=== PATIENT | female | born 2000 | race Caucasian/White ===

== ENCOUNTER 2022-10-06 13:22 | Outpatient (CLI) | payer OTHER, SELFPAY ==
--- OUTSIDE RECORDS SUMMARY | 2022-10-06 13:24 | XMS_ITS ---
:2000 Author Care Team Providers Name Role Phone ALEX OSUNA MD Primary Care Provider Unavailable Allergies Code Code System Name Reaction Severity Status Onset RxNorm Azithromycin ? ? Active ? Cefzil ? ? Active ? Cephalosporins ? ? Active ? Duricef ? ? Active ? Omnicef ? ? Active ? Rocephin ? ? Active ? [id number] RxNorm Suprax ? ? Active ? Notes: kefelex Medications Name Status Start Date Stop Date ? ? Loryna (28) 3 mg-0.02 mg tablet Active ? Not available TAKE 1 TABLET BY MOUTH ONCE DAILY spironolactone 100 mg tablet Completed ? 09/2022 TAKE 1 TABLET BY MOUTH ONCE DAILY FOR 30 DAYS sulfamethoxazole 800 mg-trimethoprim 160 mg tablet Active ? Not available TAKE 1 TABLET BY MOUTH EVERY 12 HOURS FOR 5 DAYS Xdh-Tq-Osipvtor Completed ? 04/01/2022 Sek-Al-Elwbvzqt 0.18 mg/0.215 mg/0.25 mg-25 mcg tablet Completed ? 04/01/2022 Take 1 tablet every day by oral route for 28 days. Ventolin HFA Completed ? 04/01/2022 Problems Name Status Onset Date Source ? Asthma Active 05/22/2020 ? Polycystic Ovary Syndrome Active 03/19/2021 ? Procedures Date Name Performed by ? 04/16/2021 , Transvaginal [facility] (Radiology) [address], [place] [id number] (Work Place) 04/16/2021 , Pelvis [facility] (Radiology) [address] [place] [address] (Work Place) Results Lab Results Date Name Specimen Result Interpretation Description Value Range Status Address ? 08/31/2022 Urinalysis, Urine ? No observation ? ? ? In-Office Dipstick recorded. Order : Internal U se Only DO No t Attach Compendium DO Not Attach Compendium , Do Not Delete/ellyn ge 04/04/2022 Urn Neg MID Suscept Amoxicillin/cl <=2 ? Fi nal [facility] [place] Panel 1 ible avulanate Health (Lab): [address], [place] ? ? MID Resista Ampicillin >=32 ? Final Humb [facility] ([facility]): [address], [place] ? ? MID Suscept Ampicillin/sul 4 ? Final [facility] [place] ible bactam Health (Ks b): [address], [place] ? ? MID Unknown Cefazolin <=4 ? Final [place] l[facility] ([facility]): [address], [place] ? ? MID Suscept Cefepime <=1 ? Final [place] [facility] ([facility]): [address], [place] ? ? MID Suscept Ceftriaxone <=1 ? [facility] [address], [place] ? ? MID Suscept Ciprofloxacin <=0.25 ? [facility] ([facility] [address], [place] ? ? MID Suscept Ertapenem <=0.5 ? Final Hum[place] [facility] (Ks b): [address], [place] ? ? MID Suscept Gentamicin <=1 ? Final [facility] [place] (Ks b): [address], [place] ? ? MID Suscept Imipenem <=0.25 ? Final [place] [facility] (Ks b): [address], [place] ? ? MID Suscept Levofloxacin <=0.12 ? [facility] [address], [place] ? ? MID Interme Nitrofurantoin 64 ? Final [place] diate Health (Ks b): [address], [place] ? ? MID Suscept Piperacillin/t <=4 ? Final [facility] ible azobactam Health (Lab): [address], [place] ? ? MID Suscept Tobramycin <=1 ? Final Humb [facility] ([facility]): [address], [place] ? ? MID Suscept Trimethoprim/s <=20 ? Final [facility] (Ks b): [address], [place] 04/01/2022 HIV Antibody Blood ? HIV 1-2 Ag/Ab, non-bhavin non- re Final [facility] Screen venous 4TH Gen ctive active Health (L ab): [address], [place] 04/01/2022 RPR (Rapid Blood ? Rapid Plasma non-bhavin non-re F inal [facility] Plasma venous [place] ctive active Health ([facility]): [place]), [address], [place] 04/01/2022 chlamydia/N. Urine ? Chlamydia not not Fin [facility] gcrna,tma Trachomatis detecte detect H ealth (Lab): RNA,tma d ed [address], [place] ? ? Urine ? Result Message see () [facility] [address], [place] ? ? Urine ? Neisseria not not Final [facility] Gonorrhoeae detecte detect Heal th (Lab): RNA,tma d ed [address], [place] 04/01/2022 Culture, MID ? Urine Culture ? ? Cor rec [facility] Urine Counts include 234 beds at the [facility] ([facility]): [address], [place] ? ? MID ? Klebsiella isolate ? Correc [facility] [place] [facility] Pneumoniae d Counts include 234 beds at the [facility] (Lab): [address], [place] 04/01/2022 Hepatitis Blood ? Hepatitis a non-bhavin non-re Fin al [facility] profile_I venous Antibody IgM ctive active H ealth (Lab): [address], [place] ? ? Blood ? Hepatitis B non-bhavin non-re Final [facility] [place] venous Core Ab,IgM ctive active Healt h (Lab): [address], [place] ? ? Blood ? Hepatitis B non-bhavin non-re Final [facility] [place] venous Surface Antigen ctive active H ealth (Lab): [address], [place] ? ? Blood ? Hepatitis C non-bhavin non-re Final [place] venous Antibody ctive active Health ( Lab): [address], [place] ? ? Blood ? hep.C Ab 0.04 <1.00 Final [place] venous Signal to Health (Lab): Cut-off [address], [place] 04/01/2022 Hepatitis ? No observation ? ? ? (A+B+C) recorded. Panel, Serum 04/01/2022 Culture, Urine ? No observation ? ? ? [place] Urine recorded. Health (Lab): [address], [place] 04/01/2022 Urinalysis, Urine ? No observation ? ? ? In-Office Dipstick recorded. Order : Internal U se Only DO No t Attach Compendium DO Not Attach Compendium , Do Not Delete/ellyn ge 04/25/2021 CBC with Normal Abs Baso(auto) 0.0 0.0-0. Fi nal [place] Diff K/cmm 2 Health (La b): K/cmm [address], [place] ? ? Normal Abs Eos(auto) 0.1 0-0.3 Final [place] K/cmm K/cmm Health (La b): [address], [place] ? ? Normal Abs Gran(auto) 3.8 1.5-7. Final [place] K/cmm 8 Health (La b): K/cmm [address], [place] ? ? Normal Abs 1.8 0.85-3 Final [place] [place] Lymphs(auto) K/cmm .9 Heal th (Lab): K/cmm [address], [place] ? ? Normal Abs [place](auto) 0.4 0.2-0. Final [place] K/cmm 95 Health (La b): K/cmm [address], [place] ? ? Normal Basophil% 0.5 % 0-2.0 Final [place] (Auto Diff) % Healt h (Lab): [address], [place] ? ? Normal Eosinophil%(Au 1.2 % 0-4 % Final [place] to Diff) Health ( Lab): [address], [place] ? ? Normal Granulocyte%(A 62.1 % 46-75 Final [place] uto) % Health ([place] b): [address], [place] ? ? Normal Hematocrit 38.7 % 35-45 Final [place] % Health ([place] b): [address], [place] ? ? Normal Hemoglobin 13.2 11.7-1 Final [place] g/dL 5.5 Health (La b): g/dL [address], [place] ? ? Normal Lymph%(Auto) 29.2 % 20-45 Final [place] % Health ([place] b): [address], [place] ? ? Normal Mean 28.8 pg 27-33 Final [place] Corpuscular pg Healt h (Lab): Hemoglobin [address], [place] ? ? Normal Mean 34.0 32-36 Final [place] Corpuscular HGB g/dL g/dL H ealth (Lab): Conc [address], [place] ? ? Normal Mean 84.6 fL 80-100 Final [place] Corpuscular fL Healt h (Lab): Volume [address], [place] ? ? Normal [place]%(Auto) 7.0 % 2-10 % Final [place] Health ([place] b): [address], [place] ? ? Normal Mean Platelet 7.9 fL 7.5-12 Final [place] Volume .5 fL Health (La b): [address], [place] ? ? Normal Platelet Count 336 140-40 Final [place] K/cmm 0 Health (La b): K/cmm [address], [place] ? ? Normal Red Blood 4.57 3.8-5. Final [place] Count M/cmm 1 Health (La b): M/cmm [address], [place] ? ? Normal Red Cell 13.5 % 11.0-1 Final [place] Distribution 5.0 % Heal th (Lab): Width [address], [place] ? ? Normal White Blood 6.1 3.8-10 Final [place] Count K/cmm .8 Health (La b): K/cmm [address], [place] 04/25/2021 17-Hydroxypr ? 17 63 () Final [place] ogesterone, hydroxyprogeste NG/dL NG/dL Health (Lab): QN, Serum albert,serum_I [address], [place] 04/25/2021 Lipid ? Cholesterol,to 137 <170 Lety l [place] Profile iqra mg/dL mg/dL Health (L ab): [address], [place] ? ? ? HDL 51 >45 Final [place] Cholesterol mg/dL mg/dL Healt h (Lab): [address], [place] ? ? ? Triglycerides 60 <90 Final [place] mg/dL mg/dL Health (La b): [address], [place] ? ? ? LDL-cholestero 72 <110 Final [place] l Health ([place] b): [address], [place] ? ? ? Chol/hdlc 2.7 <5.0 Final [place] Ratio (calc) (calc) Health (La b): [address], [place] ? ? ? Non HDL 86 <120 Final [place] Cholesterol Healt h (Lab): [address], [place] 04/25/2021 Prolactin, ? Prolactin 28.4 () Final [place] Serum NG/mL NG/mL Health (La b): [address], [place] 04/25/2021 Testosterne ? Testosterone,t 31 2-45 Final [place] Free & Tot otal NG/dL NG/dL Health (Lab): Lcmsms [address], [place] ? ? ? Testosterone,f 5.3 0.1-6. Final [place] ree pg/mL 4 Health (La b): pg/mL [address], [place] 04/25/2021 Thyroid ? Tsh 3.50 () Final [place] Stimulating mIU/L mIU/L Healt h (Lab): Hormone [address], [place] 04/25/2021 CBC W/ Auto ? No observation ? ? ? [place] Diff recorded. Health (Lab): [address], [place] 04/25/2021 Glucose ? No observation ? ? ? [place] Tolerance recorded. Heal th (Lab): Test, 2-Hour [address], [place] 04/25/2021 CMP, Serum ? No observation ? ? ? [place] or Plasma recorded. [facility] th (Lab): [address], [place] 04/25/2021 Testosterone ? No observation ? ? ? [place] , Free + recorded. Healt h (Lab): Total, Serum [address], [place] 04/25/2021 TSH, Serum ? No observation ? ? ? [place] or Plasma recorded. [facility] th (Lab): [address], [place] 04/25/2021 Lipid Panel, ? No observation ? ? ? [place] Blood recorded. Health (Lab): [address], [place] 04/25/2021 Prolactin, ? No observation ? ? ? [place] Serum recorded. Health (Lab): [address], [place] 04/25/2021 17-Hydroxypr ? No observation ? ? ? [place] ogesterone, recorded. He alth (Lab): QN, Serum [address], [place] Past Encounters 04/06/2022 Counseling; Acute Urinary Tract Infectio n Alex Osuna MD: [address], [place] [address], Ph. 04/01/2022 Adult Health Examination; Polycystic Ova ry Syndrome; Dysuria; Venereal Disease Screening Alex Osuna MD: [address], [place] [address], Ph. 04/28/2021 Polycystic Ovary Syndrome Castro Rubi, DO: [address], [address], [place] [address], Ph. 04/16/2021 Polycystic Ovary Syndrome; Obesity Castro Rubi, DO: [address], [address], [place] [address], Ph. Social History Tobacco Smoking Status Never Smoker Vaccine List None recorded. Plan of Care Reminders Provider Appointments None recorded. ? ? Lab None recorded. ? ? Referral None recorded. ? ? Procedures None recorded. ? ? Surgeries None recorded. ? ? Imaging None recorded. ? ? Vitals 04/01/2022 01:00PM Followup 15 Height Weight BMI Blood Pressure 5 ft 5.2 in 216.4 lbs 35.8 kg/m2 100/74 mm[Hg] 04/28/2021 01:45PM Est Pt F/U 15 Height Weight BMI Blood Pressure 5 ft 5.2 in 217.2 lbs 35.9 kg/m2 104/72 mm[Hg] 04/16/2021 10:00AM GYNE New 30 Height Weight BMI Blood Pressure 5 ft 5.2 in 219 lbs 36.2 kg/m2 110/64 mm[Hg] 03/19/2021 02:30PM Physical 30 Height Weight BMI Blood Pressure 5 ft 5.2 in 215.6 lbs 35.7 kg/m2 112/66 mm[Hg] 05/22/2020 02:00PM Followup 15 Height Weight BMI Blood Pressure 5 ft 5.2 in 184.2 lbs 30.5 kg/m2 132/80 mm[Hg]
--- OUTSIDE RECORDS SUMMARY | 2022-10-06 13:24 | XMS_ITS ---
:2001 Author Care Team Providers Name Role Phone Hannah Gonzaleza Primary Care Provider Unavailable Allergies None recorded. Medications None recorded. Problems Name Status Onset Date Source ? Asthma Active 07/10/2020 ? Procedures None recorded. Results Lab Results Date Name Specimen Result Interpretation Description Value Range Status Address ? ? 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 Social History None recorded. Vaccine List None recorded. Plan of Care Reminders Provider Appointments None recorded. ? ? Lab None recorded. ? ? Referral None recorded. ? ? Procedures None recorded. ? ? Surgeries None recorded. ? ? Imaging None recorded. ? ? Vitals None recorded.
[2022-10-06 22:08] LABS: Chlamydia DNA Amplified* NOT DETECTED (No Detected); GC DNA Amplified* NOT DETECTED (No Detected)
== END 2022-10-06 13:23 | disposition home or self-care (01) ==
LOC: NFLDREF 13:22
PROVIDERS: Visit Provider Registered Nurse
DX: Z11.3 Encounter for screening for infections with a predominantly sexual mode of transmission (principal)
CPT/HCPCS: 87491; 87591